=== PATIENT | male | born 1960 | race Caucasian/White ===

== ENCOUNTER 2018-07-15 10:02 | Emergency (ER) | payer OTHER ==
[2018-07-15] MEDS ORDERED: ceFAZolin 500 MG VIAL(*) 500 MG VIAL IM ONE (12:09)
[2018-07-15] MEDS ORDERED: Tetan/Diph/Pertus SYR(Tdap)* 0.5 ML SYR(BOOSTRIX) use SYR IM ONE (12:10)
--- NOTE | 2018-07-15 12:18 | ED ---
Skin Complaint - HPI Summary HPI Summary: 57 yo WM p/w right hand swelling and redness after a nail gun bounced off and a nail got stuck in right second web space about a 1/4 inch, does not recall last Tdap - History of Current Complaint Chief Complaint: UCUpperExtremity Time Seen by Provider: 07/15/18 11:52 Stated Complaint: R HAND INJURY Hx Obtained From: Patient Onset/Duration: Started Hours Ago Skin Exposure Onset/Duration: Hours Ago Timing: Lasting Days Onset Severity: Moderate Current Severity: Moderate Pain Intensity: 8 - Allergy/Home Medications Allergies/Adverse Reactions: Allergies Allergy/AdvReac Type Severity Reaction Status Date / Time MS Bee Venom [Bee Venom] Allergy Intermediate Swelling Verified 07/15/18 10:25 Home Medications: Home Medications Tadalafil [Cialis] 5 mg PO DAILY 07/15/18 [History Confirmed 07/15/18] PMH/Surg Hx/FS Hx/Imm Hx Previously Healthy: Yes Endocrine/Hematology History: Denies: Hx Diabetes, Hx Thyroid Disease Cardiovascular History: Denies: Hx Hypertension Respiratory History: Denies: Hx Asthma, Hx Chronic Obstructive Pulmonary Disease (COPD) GI History: Denies: Hx Ulcer - Surgical History Surgery Procedure, Year, and Place: Hernia repair; wisdom teeth Infectious Disease History: No Infectious Disease History: Reports: Hx Shingles - maybe Denies: Hx Clostridium Difficile, Hx Hepatitis, Hx Human Immunodeficiency Virus (HIV), Hx of Known/Suspected MRSA, Hx Tuberculosis, Hx Known/Suspected VRE , Hx Known/Suspected VRSA, History Other Infectious Disease, Traveled Outside the [place] in Last 30 Days - Social History Alcohol Use: Daily Substance Use Type: Reports: None Smoking Status (MU): Never Smoked Tobacco Review of Systems Constitutional: Negative Eyes: Negative ENT: Negative Cardiovascular: Negative Respiratory: Negative Gastrointestinal: Negative Genitourinary: Negative Skin: Other - see HPI Neurological: Negative Psychological: Normal All Other Systems Reviewed And Are Negative: Yes Physical Exam - Summary Physical Exam Summary: Vital Signs Reviewed: Yes Appearance: Positive: No Pain Distress Skin: Positive: red war, erythematous, swollen TTP right hand in between 2nd and 3rd web space near 2nd and 3rd MCP, cellulitic Head/Face: Positive: Normal Head/Face Inspection Eyes: Positive: Normal ENT: Positive: Normal ENT inspection Neck: Positive: Supple Respiratory/Lung Sounds: Positive: Clear to Auscultation. Negative: Rales, Rhonchi, Wheezes Cardiovascular: Positive: Normal, RRR, S1, S2 Abdomen Description: Positive: Nontender Musculoskeletal: Positive: Normal Neurological: Positive: Normal, CN Intact II-III Psychiatric: Positive: Normal, Affect/Mood Appropriate Triage Information Reviewed: Yes Vital Signs On Initial Exam: Initial Vitals Temp Pulse Resp BP Pulse Ox 36.1 C 70 16 128/85 100 07/15/18 10:22 07/15/18 10:22 07/15/18 10:22 07/15/18 10:22 07/15/18 10:22 Diagnostics - Vital Signs Vital Signs Temp Pulse Resp BP Pulse Ox 07/15/18 10:22 36.1 C 70 16 128/85 100 - Laboratory Lab Statement: Any lab studies that have been ordered have been reviewed, and results considered in the medical decision making process. Course/Dx - Diagnoses Provider Diagnoses: Cellulitis of hand, right Discharge - Sign-Out/Discharge Documenting (check all that apply): Patient Departure All imaging exams completed and their final reports reviewed: No Studies - Discharge Plan Condition: Stable Disposition: HOME Prescriptions: Cephalexin CAP* [Keflex CAP*] 500 mg PO TID 10 Days #30 cap Patient Education Materials: Cellulitis (ED) Additional Instructions: Take antibiotics as directed, go to ED if swelling worsens - Billing Disposition and Condition Condition: STABLE Disposition: Home
[2018-07-15 12:40] VITALS: BP 144/92
== END 2018-07-15 13:16 | disposition home or self-care (01) ==
LOC: UCEAST 10:02
DX: L03.113 Cellulitis of right upper limb (principal); Z91.030 Bee allergy status
CPT/HCPCS: 90471; 90715; 99202; G0463; J0690